=== PATIENT | female | born 1955 | race Caucasian/White ===

== ENCOUNTER 2020-09-20 01:02 | Inpatient (IN) ==
[2020-09-20] MEDS ORDERED: methylPREDNISolone 125 MG/2 ML VIAL IVP ONE (01:14)
[2020-09-20] MEDS ORDERED: Ipratropium/Albuterol Neb 3 ML IH ONE (01:14)
[2020-09-20 01:48] LABS: Basophils # 0.1 K/mcL (0.0-0.2); Basophils % 0.6 %; Eosinophils # 0.2 K/mcL (0.0-0.6); Eosinophils % 1.1 %; Hematocrit 42.3 % (35.3-44.9); Hemoglobin 12.8 g/dL (11.5-15.4); Immature Granulocytes % 2.7 % (0-4); Lymphocytes # 1.9 K/mcL (0.6-4.6); Lymphocytes % 11.3 %; Mean Corpuscular HGB Conc 30.3 g/dL (31.6-35.5); Mean Corpuscular Hemoglobin 29.8 pg (28.0-33.3); Mean Corpuscular Volume 98.4 fL (83.0-100.0); Mean Platelet Volume 10.2 fL (9.4-12.4); Monocytes % 5.9 %; Neutrophils # 12.9 K/mcL (1.6-8.9); Nucleated Red Blood Cells 0.4 /100 WBC (0); Platelet Count 385 K/mcL (140-400); Red Cell Distribution Width 16.4 % (11.5-14.5); Segmented Neutrophils % 78.4 %; White Blood Count 16.4 K/mcL (4.3-11.1)
[2020-09-20 01:49] LABS: ABG Base Excess 2 mEq/L (-2 to 3); ABG HCO3 32 mEq/L (21-27); ABG Oxygen Saturation 93 % (95-98); ABG PCO2 71 mmHg (35-45); ABG PH 7.26 pH Units (7.32-7.45); ABG PO2 82 mmHg (85-104); ABG TCO2 34 mEq/L (20-26)
[2020-09-20 02:08] LABS: BUN/Creatinine Ratio 20 (6-26); Blood Urea Nitrogen 13 mg/dL (8-23); Carbon Dioxide 32 mEq/L (23-29); Chloride 99 mEq/L (98-107); Glucose 142 mg/dL (70-105); Osmolality,Calculated 289 (280-300); Potassium 4.1 mEq/L (3.5-5.1); Sodium 138 mEq/L (136-145); Troponin I < 0.03 ng/mL (< 0.04); eGFR For African Americans > 60 (> 60); eGFR For Non-African Americans > 60 (> 60)
[2020-09-20 02:11] LABS: Activated Partial Thrombo Time 50.6 Seconds (26.0-36.0); INR 1.3; Prothrombin Time 14.4 Seconds (9.4-12.1)
[2020-09-20 03:44] LABS: ABG Base Excess 2 mEq/L (-2 to 3); ABG HCO3 32 mEq/L (21-27); ABG Oxygen Saturation 95 % (95-98); ABG PCO2 73 mmHg (35-45); ABG PH 7.25 pH Units (7.32-7.45); ABG PO2 89 mmHg (85-104); ABG TCO2 34 mEq/L (20-26)
[2020-09-20] MEDS ORDERED: Isovue-370 500 ML BOTTLE IVP ONE (03:57)
[2020-09-20] MEDS ORDERED: Azithromycin 500 MG in 0.9 % Sodium Chloride 250 ML IVPB ONE (05:35)
[2020-09-20 05:55] LABS: ABG Base Excess 3 mEq/L (-2 to 3); ABG HCO3 32 mEq/L (21-27); ABG Oxygen Saturation 92 % (95-98); ABG PCO2 73 mmHg (35-45); ABG PH 7.26 pH Units (7.32-7.45); ABG PO2 77 mmHg (85-104); ABG TCO2 35 mEq/L (20-26)
[2020-09-20] MEDS ORDERED: Naloxone 0.4 MG/ML INJ IVP PRN ×3 (08:36→21:00)
[2020-09-20] MEDS ORDERED: Ondansetron 4 MG/2 ML VIAL IVP PRN ×2 (08:36→21:00)
[2020-09-20] MEDS ORDERED: *HR* Dextrose 50 % in Water (Vial) 50 ML VIAL IVP PRN ×2 (08:42→21:00)
[2020-09-20] MEDS ORDERED: Dextrose Gel 15 GM/37.5 ML TUBE PO PRN ×4 (08:42→21:00)
[2020-09-20] MEDS ORDERED: D5% in Water 1,000 ML IVC PRN ×2 (08:42→21:00)
[2020-09-20] MEDS ORDERED: TIOTROPIUM IH SCH (09:00)
[2020-09-20] MEDS: MethylPREDNISolone 40 MG/ML VIAL IVP SCH ×2 (09:20→17:45)
[2020-09-20 09:35] LABS: ABG Base Excess 4 mEq/L (-2 to 3); ABG HCO3 34 mEq/L (21-27); ABG Oxygen Saturation 90 % (95-98); ABG PCO2 75 mmHg (35-45); ABG PH 7.27 pH Units (7.32-7.45); ABG PO2 71 mmHg (85-104); ABG TCO2 36 mEq/L (20-26); Blood Gas FiO2 2.5 (1-15=lpm or21-100=%)
[2020-09-20] MEDS: Ipratropium/Albuterol Neb 3 ML IH SCH ×4 (10:01→20:48)
[2020-09-20] MEDS ORDERED: Lidocaine 5% OINT 35 APPL/35.44 GM TUBE TP ONE (10:19)
[2020-09-20] MEDS: Insulin LISPRO 300 UNITS/3 ML VIAL SUBQ SCH ×2 (12:32→17:45)
[2020-09-20] MEDS ORDERED: Acetaminophen 325 MG TABLET PO PRN (12:50)
[2020-09-20] MEDS ORDERED: *HR* Heparin 5,000 UNIT/ML VIAL SQ SCH (14:00)
[2020-09-20] MEDS ORDERED: *HR* LORazepam 0.5 MG TABLET PO PRN ×2 (14:41→21:00)
[2020-09-20 14:52] LABS: ABG Base Excess 5 mEq/L (-2 to 3); ABG HCO3 34 mEq/L (21-27); ABG Oxygen Saturation 88 % (95-98); ABG PCO2 67 mmHg (35-45); ABG PH 7.31 pH Units (7.32-7.45); ABG PO2 62 mmHg (85-104); ABG TCO2 36 mEq/L (20-26)
[2020-09-20 15:46] LABS: Adenovirus Not Detected (Not Detect); Coronavirus 229E Not Detected (Not Detect); Coronavirus HKU1 Not Detected (Not Detect); Coronavirus NL63 Not Detected (Not Detect); Coronavirus OC43 Not Detected (Not Detect); SARS-CoV-2 Not Detected (Not Detect)
[2020-09-20 15:47] LABS: Bordetella Pertussis Not Detected (Not Detect); Chlamydophila pneumoniae Not Detected (Not Detect); Human Metapneumovirus Not Detected (Not Detect); Human Rhinovirus/Enterovirus Not Detected (Not Detect); Influenza A Subtype 2009 H1 Not Detected (Not Detect); Influenza B Not Detected (Not Detect); Mycoplasma pneumoniae Not Detected (Not Detect); Parainfluenza Virus 1 Not Detected (Not Detect); Parainfluenza Virus 2 Not Detected (Not Detect); Parainfluenza Virus 3 Not Detected (Not Detect); Parainfluenza Virus 4 Not Detected (Not Detect); Respiratory Syncytial Virus Not Detected (Not Detect)
[2020-09-20] MEDS ORDERED: cefTRIAXone 1,000 MG in 0.9 % Sodium Chloride Mini Bag 100 ML IVPB SCH (21:00)
[2020-09-20] MEDS ORDERED: Ipratropium/Albuterol Neb 3 ML IH SCH (21:00)
[2020-09-20] MEDS ORDERED: NON-FORMULARY MEDICATION 1 EACH EACH (Umeclidinium Bromide [Incruse Ellipta] 1 PUFF) IH SCH (21:00)
[2020-09-20] MEDS ORDERED: MethylPREDNISolone 40 MG/ML VIAL IVP ONE (21:00)
[2020-09-20] MEDS ORDERED: Azithromycin 500 MG in 0.9 % Sodium Chloride 250 ML IVPB SCH (21:00)
[2020-09-20] MEDS ORDERED: NON-FORMULARY MEDICATION 1 EACH EACH (Pantoprazole Sodium [Protonix] 40 MG) PO SCH (21:00)
[2020-09-20] MEDS: *HR* Heparin 5,000 UNIT/ML VIAL SQ SCH (22:12)
[2020-09-20] MEDS: Pregabalin 75 MG CAPSULE PO SCH (22:12)
[2020-09-20] MEDS: 0.9 % Sodium Chloride 1,000 ML IVC SCH (22:14)
[2020-09-20] MEDS: Fluticasone Propionate Nasal 50 MCG/SPRAY BOTTLE NS SCH (23:06)
[2020-09-20] MEDS: (Ubidecarenone [Coenzyme Q10] 100 MG) PO SCH (23:07)
[2020-09-21] MEDS: Ipratropium/Albuterol Neb 3 ML IH SCH ×6 (00:52→20:48)
[2020-09-21] MEDS: MethylPREDNISolone 40 MG/ML VIAL IVP SCH ×3 (04:02→15:37)
[2020-09-21] MEDS: *HR* Heparin 5,000 UNIT/ML VIAL SQ SCH ×3 (05:27→22:05)
[2020-09-21] MEDS: Levothyroxine 25 MCG TABLET PO SCH (05:27)
[2020-09-21] MEDS ORDERED: cefTRIAXone 1,000 MG in Water for inj. (sterile) 10 ML IVP SCH (06:00)
[2020-09-21] MEDS ORDERED: Azithromycin 500 MG in 0.9 % Sodium Chloride 250 ML IVPB SCH (06:00)
[2020-09-21] MEDS: Acetaminophen 325 MG TABLET PO PRN (06:19)
[2020-09-21] MEDS: 0.9 % Sodium Chloride 1,000 ML IVC SCH (06:19)
[2020-09-21] MEDS ORDERED: Levothyroxine 25 MCG TABLET PO SCH ×2 (06:30)
[2020-09-21 07:12] LABS: Basophils # 0.2 K/mcL (0.0-0.2); Basophils % 1.2 %; Eosinophils % 0.1 %; Hematocrit 42.5 % (35.3-44.9); Hemoglobin 12.3 g/dL (11.5-15.4); Immature Granulocytes % 4.6 % (0-4); Lymphocytes # 1.6 K/mcL (0.6-4.6); Lymphocytes % 9.9 %; Mean Corpuscular HGB Conc 28.9 g/dL (31.6-35.5); Mean Corpuscular Hemoglobin 29.4 pg (28.0-33.3); Mean Corpuscular Volume 101.4 fL (83.0-100.0); Mean Platelet Volume 10.2 fL (9.4-12.4); Monocytes # 0.8 K/mcL (0.0-1.3); Monocytes % 5.2 %; Neutrophils # 12.6 K/mcL (1.6-8.9); Nucleated Red Blood Cells 0.3 /100 WBC (0); Platelet Count 419 K/mcL (140-400); Red Blood Count 4.19 M/mcL (3.82-4.97); Red Cell Distribution Width 16.3 % (11.5-14.5); White Blood Count 15.9 K/mcL (4.3-11.1)
[2020-09-21 07:41] LABS: Alanine Aminotransferase 15 Units/L (7-52); Albumin 3.8 g/dL (3.5-5.7); Albumin/Globulin Ratio 1.1 (1.1-2.2); Alkaline Phosphatase 98 Units/L (34-104); Aspartate Amino Transferase 18 Units/L (13-39); BUN/Creatinine Ratio 22 (6-26); Bilirubin,Total 0.3 mg/dL (0.3-1.0); Blood Urea Nitrogen 15 mg/dL (8-23); Calcium 8.9 mg/dL (8.6-10.3); Carbon Dioxide 27 mEq/L (23-29); Chloride 101 mEq/L (98-107); Globulin 3.5 g/dL (2.4-3.5); Glucose 155 mg/dL (70-105); Magnesium 2.3 mg/dL (1.6-2.6); Osmolality,Calculated 292 (280-300); Phosphorous 2.5 mg/dL (2.7-4.5); Potassium 4.6 mEq/L (3.5-5.1); Sodium 139 mEq/L (136-145); Total Protein 7.3 g/dL (6.4-8.9); eGFR For African Americans > 60 (> 60); eGFR For Non-African Americans > 60 (> 60)
[2020-09-21 08:20] LABS: Hypochromasia Present (Not Present)
[2020-09-21] MEDS: Insulin LISPRO 300 UNITS/3 ML VIAL SUBQ SCH ×3 (08:29→16:53)
[2020-09-21] MEDS: Pregabalin 75 MG CAPSULE PO SCH ×2 (08:31→22:05)
[2020-09-21] MEDS: Metoprolol XL (24 HR) Succ 25 MG TAB.ER.24H PO SCH (08:31)
[2020-09-21] MEDS: cefTRIAXone 1,000 MG in Water for inj. (sterile) 10 ML IVP SCH (08:34)
[2020-09-21] MEDS: Fluticasone Propionate Nasal 50 MCG/SPRAY BOTTLE NS SCH (08:39)
[2020-09-21] MEDS: (Ubidecarenone [Coenzyme Q10] 100 MG) PO SCH (08:41)
[2020-09-21] MEDS ORDERED: Tiotropium 10 INH DOSE IH SCH (10:00)
[2020-09-21] MEDS: Azithromycin 500 MG in 0.9 % Sodium Chloride 250 ML IVPB SCH (10:08)
[2020-09-21] MEDS: Budesonide/Formoterol 160/4.5 1 PUFF INH IH SCH ×2 (10:15→20:47)
[2020-09-21 10:34] LABS: Estimated Average Glucose 146 mg/dl; Hemoglobin A1C 6.7 %
[2020-09-21] MEDS: *HR* OxyCODONE/APAP 10/325 TABLET PO PRN (15:36)
[2020-09-21] MEDS: Pramoxine 15 GM FOAM Package TP SCH ×2 (16:58→22:06)
[2020-09-21] MEDS: Furosemide 20 MG/2 ML VIAL IVP SCH (18:27)
[2020-09-21] MEDS: Nystatin POWDER 30 GM BOTTLE TP SCH (22:06)
[2020-09-22] MEDS: Ipratropium/Albuterol Neb 3 ML IH SCH ×6 (00:25→20:45)
[2020-09-22] MEDS: MethylPREDNISolone 40 MG/ML VIAL IVP SCH ×3 (01:23→16:24)
[2020-09-22] MEDS: *HR* OxyCODONE/APAP 10/325 TABLET PO PRN ×2 (02:02→16:24)
[2020-09-22] MEDS: *HR* Heparin 5,000 UNIT/ML VIAL SQ SCH ×3 (06:19→20:58)
[2020-09-22] MEDS: Levothyroxine 25 MCG TABLET PO SCH (06:19)
[2020-09-22 06:51] LABS: Hematocrit 42.4 % (35.3-44.9); Hemoglobin 12.7 g/dL (11.5-15.4); Mean Platelet Volume 9.9 fL (9.4-12.4); Platelet Count 444 K/mcL (140-400); Red Blood Count 4.24 M/mcL (3.82-4.97); Red Cell Distribution Width 16.1 % (11.5-14.5); White Blood Count 17.2 K/mcL (4.3-11.1)
[2020-09-22 07:10] LABS: BUN/Creatinine Ratio 21 (6-26); Blood Urea Nitrogen 18 mg/dL (8-23); Calcium 9.2 mg/dL (8.6-10.3); Carbon Dioxide 34 mEq/L (23-29); Chloride 97 mEq/L (98-107); Glucose 175 mg/dL (70-105); Magnesium 2.2 mg/dL (1.6-2.6); Osmolality,Calculated 290 (280-300); Potassium 4.4 mEq/L (3.5-5.1); Sodium 137 mEq/L (136-145); eGFR For African Americans > 60 (> 60); eGFR For Non-African Americans > 60 (> 60)
[2020-09-22] MEDS: Budesonide/Formoterol 160/4.5 1 PUFF INH IH SCH ×2 (08:27→20:48)
[2020-09-22] MEDS: Insulin LISPRO 300 UNITS/3 ML VIAL SUBQ SCH ×3 (08:29→16:58)
[2020-09-22] MEDS: Nystatin POWDER 30 GM BOTTLE TP SCH ×3 (08:30→21:06)
[2020-09-22] MEDS: Metoprolol XL (24 HR) Succ 25 MG TAB.ER.24H PO SCH (08:31)
[2020-09-22] MEDS: Pregabalin 75 MG CAPSULE PO SCH ×2 (08:31→20:59)
[2020-09-22] MEDS: lisinopriL 10 MG TABLET PO SCH (08:31)
[2020-09-22] MEDS: Furosemide 20 MG/2 ML VIAL IVP SCH (08:34)
[2020-09-22] MEDS: cefTRIAXone 1,000 MG in Water for inj. (sterile) 10 ML IVP SCH (08:35)
[2020-09-22] MEDS: Azithromycin 500 MG in 0.9 % Sodium Chloride 250 ML IVPB SCH (08:38)
[2020-09-22] MEDS: Fluticasone Propionate Nasal 50 MCG/SPRAY BOTTLE NS SCH (08:48)
[2020-09-22] MEDS: Pramoxine 15 GM FOAM Package TP SCH ×3 (08:49→21:06)
[2020-09-22] MEDS: (Ubidecarenone [Coenzyme Q10] 100 MG) PO SCH (08:49)
[2020-09-22] MEDS: Acetaminophen 325 MG TABLET PO PRN (12:13)
[2020-09-23] MEDS: Ipratropium/Albuterol Neb 3 ML IH SCH ×6 (00:25→20:45)
[2020-09-23] MEDS: *HR* OxyCODONE/APAP 10/325 TABLET PO PRN ×2 (00:44→12:01)
[2020-09-23] MEDS: MethylPREDNISolone 40 MG/ML VIAL IVP SCH ×2 (05:48→17:56)
[2020-09-23] MEDS: *HR* Heparin 5,000 UNIT/ML VIAL SQ SCH ×3 (05:49→22:03)
[2020-09-23] MEDS: Levothyroxine 25 MCG TABLET PO SCH (05:49)
[2020-09-23] MEDS: Acetaminophen 325 MG TABLET PO PRN (06:05)
[2020-09-23] MEDS: Insulin LISPRO 300 UNITS/3 ML VIAL SUBQ SCH ×3 (07:29→17:08)
[2020-09-23] MEDS: Budesonide/Formoterol 160/4.5 1 PUFF INH IH SCH ×2 (07:44→20:45)
[2020-09-23] MEDS: (Ubidecarenone [Coenzyme Q10] 100 MG) PO SCH (09:32)
[2020-09-23] MEDS: cefTRIAXone 1,000 MG in Water for inj. (sterile) 10 ML IVP SCH (09:59)
[2020-09-23] MEDS: Azithromycin 500 MG in 0.9 % Sodium Chloride 250 ML IVPB SCH (09:59)
[2020-09-23] MEDS: Metoprolol XL (24 HR) Succ 25 MG TAB.ER.24H PO SCH ×2 (10:00→13:49)
[2020-09-23] MEDS: Pregabalin 75 MG CAPSULE PO SCH ×3 (10:00→22:03)
[2020-09-23] MEDS: lisinopriL 10 MG TABLET PO SCH (10:00)
[2020-09-23] MEDS: Furosemide 20 MG/2 ML VIAL IVP SCH (10:01)
[2020-09-23] MEDS: Fluticasone Propionate Nasal 50 MCG/SPRAY BOTTLE NS SCH (10:01)
[2020-09-23] MEDS: Pramoxine 15 GM FOAM Package TP SCH ×3 (10:01→22:24)
[2020-09-23] MEDS: Nystatin POWDER 30 GM BOTTLE TP SCH ×3 (10:02→22:23)
[2020-09-24] MEDS: Ipratropium/Albuterol Neb 3 ML IH SCH ×4 (00:07→12:40)
[2020-09-24] MEDS: *HR* OxyCODONE/APAP 10/325 TABLET PO PRN (00:09)
[2020-09-24] MEDS: *HR* Heparin 5,000 UNIT/ML VIAL SQ SCH (06:19)
[2020-09-24] MEDS: Levothyroxine 25 MCG TABLET PO SCH (06:19)
[2020-09-24] MEDS: MethylPREDNISolone 40 MG/ML VIAL IVP SCH (06:19)
[2020-09-24 06:51] VITALS: BP 98/61
[2020-09-24 06:55] LABS: Hemoglobin 11.8 g/dL (11.5-15.4); Mean Corpuscular HGB Conc 30.3 g/dL (31.6-35.5); Mean Corpuscular Hemoglobin 30.2 pg (28.0-33.3); Mean Corpuscular Volume 99.7 fL (83.0-100.0); Mean Platelet Volume 9.9 fL (9.4-12.4); Platelet Count 399 K/mcL (140-400); Red Blood Count 3.91 M/mcL (3.82-4.97); Red Cell Distribution Width 15.7 % (11.5-14.5); White Blood Count 17.7 K/mcL (4.3-11.1)
[2020-09-24 07:39] LABS: BUN/Creatinine Ratio 27 (6-26); Blood Urea Nitrogen 22 mg/dL (8-23); Calcium 8.9 mg/dL (8.6-10.3); Carbon Dioxide 44 mEq/L (23-29); Chloride 94 mEq/L (98-107); Glucose 119 mg/dL (70-105); Osmolality,Calculated 296 (280-300); Potassium 3.9 mEq/L (3.5-5.1); Sodium 141 mEq/L (136-145); eGFR For African Americans > 60 (> 60); eGFR For Non-African Americans > 60 (> 60)
[2020-09-24] MEDS: Budesonide/Formoterol 160/4.5 1 PUFF INH IH SCH (08:33)
[2020-09-24] MEDS: Nystatin POWDER 30 GM BOTTLE TP SCH (08:52)
[2020-09-24] MEDS: Pregabalin 75 MG CAPSULE PO SCH (08:52)
[2020-09-24] MEDS: Metoprolol XL (24 HR) Succ 25 MG TAB.ER.24H PO SCH (08:52)
[2020-09-24] MEDS: lisinopriL 10 MG TABLET PO SCH (08:52)
[2020-09-24] MEDS: (Ubidecarenone [Coenzyme Q10] 100 MG) PO SCH (08:53)
[2020-09-24] MEDS: Pramoxine 15 GM FOAM Package TP SCH (08:55)
[2020-09-24] MEDS: Insulin LISPRO 300 UNITS/3 ML VIAL SUBQ SCH ×2 (08:57→12:14)
[2020-09-24] MEDS: Fluticasone Propionate Nasal 50 MCG/SPRAY BOTTLE NS SCH (08:57)
[2020-09-24] MEDS: Furosemide 20 MG/2 ML VIAL IVP SCH (08:58)
[2020-09-24] MEDS ORDERED: Azithromycin 250 MG TABLET PO SCH (09:00)
[2020-09-24] MEDS: cefTRIAXone 1,000 MG in Water for inj. (sterile) 10 ML IVP SCH (09:03)
== END 2020-09-24 15:20 | disposition home or self-care (01) | DRG 871 ==
LOC: EMEROOPIK 01:02 → INPPIK 01:02 → MERGE 15:54
PROVIDERS: ADMIT Family Medicine; ATTEND Family Medicine